=== PATIENT | female | born 1990 | race American Indian/Alaskan Native ===

== ENCOUNTER 2019-08-20 01:32 | Emergency (ER) | payer SELFPAY ==
--- NOTE | 2019-08-20 02:48 | XRay Report ---
CHEST 1 VIEW INDICATION / CLINICAL INFORMATION: Chest Pain. COMPARISON: None available. FINDINGS: SUPPORT DEVICES: None. HEART / MEDIASTINUM: No significant abnormality. LUNGS / PLEURA: No significant pulmonary or pleural abnormality. No pneumothorax. ADDITIONAL FINDINGS: No significant additional findings. IMPRESSION: No acute pulmonary or pleural abnormality Signer Name: Raymond Ortega MD FACR Signed: 08/20/2019 2:43 AM Workstation Name: [email or web address]
--- NOTE | 2019-08-20 04:34 | Emergency Department Report ---
ED General Adult HPI - General Chief complaint: Chest Pain Stated complaint: CHEST PRESSURE/NECK PAIN Time Seen by Provider: 08/20/19 04:18 Source: patient Mode of arrival: Ambulatory Limitations: No Limitations - History of Present Illness Initial comments: 28-year-old obese -[place] female presents emerged department complaining of random episodes of chest pressure off and on for the last 2 nights. States she is been having these episodes overall for the last 8 to 9 months was seen in the emergency department in [facility] and by her primary care with inconclusive evaluation. States that current chest pain is not associated with any other secondary symptoms chest discomfort is more the chest pressure. Reported hemoptysis no hematemesis no hematochezia. No odynophagia or dysphagia. -: days(s) (2) Radiation: non-radiation Quality: dull Consistency: constant Improves with: none Worsens with: none Associated Symptoms: denies: denies other symptoms, confusion, diaphoresis, headaches, loss of appetite, malaise - Related Data Allergies Allergy/AdvReac Type Severity Reaction Status Date / Time ibuprofen Allergy Headache Verified 08/20/19 01:58 naproxen Allergy Headache Verified 08/20/19 01:58 ED Review of Systems ROS: Stated complaint: CHEST PRESSURE/NECK PAIN Other details as noted in HPI Comment: All other systems reviewed and negative ED Past Medical Hx - Past Medical History Previous Medical History?: No - Surgical History Past Surgical History?: Yes Additional Surgical History: C-Sec X 1 - Social History Smoking Status: Never Smoker Substance Use Type: None ED Physical Exam - General Limitations: No Limitations General appearance: alert, in no apparent distress - Head Head exam: Present: atraumatic, normocephalic - Eye Eye exam: Present: normal appearance, PERRL, EOMI Pupils: Present: normal accommodation - ENT ENT exam: Present: normal exam, mucous membranes moist, TM's normal bilaterally - Neck Neck exam: Present: normal inspection - Respiratory Respiratory exam: Present: normal lung sounds bilaterally. Absent: respiratory distress, wheezes, rales, chest wall tenderness, accessory muscle use - Cardiovascular Cardiovascular Exam: Present: regular rate, normal rhythm. Absent: systolic murmur, diastolic murmur, rubs, gallop - GI/Abdominal GI/Abdominal exam: Present: soft, normal bowel sounds. Absent: distended, tenderness, hyperactive bowel sounds, hypoactive bowel sounds - Extremities Exam Extremities exam: Present: normal inspection, normal capillary refill - Back Exam Back exam: Present: normal inspection. Absent: CVA tenderness (R), CVA tenderness (L) - Neurological Exam Neurological exam: Present: alert, oriented X3, CN II-XII intact, normal gait - Psychiatric Psychiatric exam: Present: normal affect, normal mood - Skin Skin exam: Present: warm, dry, intact, normal color. Absent: rash ED Course Vital Signs 08/20/19 01:38 Temperature 98.4 F Pulse Rate 65 Respiratory 18 Rate Blood Pressure 122/79 O2 Sat by Pulse 99 Oximetry ED Medical Decision Making - Lab Data Result diagrams: 08/20/19 05:12 - Radiology Data Radiology results: report reviewed Print Report Referring Physician:DENILSON DE LA TORREPatient Name:KIRILL BUSTILLOSRPatient ID:[id number] of :[id number]:FemaleAccession:[id number] Date:[id number] Status:Finalized Findings [address] [address] XRay Report Signed Patient: KIRILL MCDONALD MR#: [id number] : 1990 Acct:[id number] Age/Sex: 28 / F ADM Date: 08/20/19 Loc: ED Attending Dr: Ordering Physician: DENILSON DE LA TORRE MD Date of Service: 08/20/19 Procedure(s): XR chest 1V ap Accession Number(s): [id number] cc: DENILSON DE LA TORRE MD Fluoro Time In Minutes: CHEST 1 VIEW INDICATION / CLINICAL INFORMATION: Chest Pain. COMPARISON: None available. FINDINGS: SUPPORT DEVICES: None. HEART / MEDIASTINUM: No significant abnormality. LUNGS / PLEURA: No significant pulmonary or pleural abnormality. No pn eumothorax. ADDITIONAL FINDINGS: No significant additional findings. IMPRESSION: No acute pulmonary or pleural abnormality Signer Name: Raymond Ortega MD FACR Signed: 08/20/2019 2:43 AM Workstation Name: [id number] Transcribed By: MS Dictated By: Raymond Ortega MD Electronically Authenticated By: Raymond Ortega MD Signed Date/Time: 08/20/19 0243 - Medical Decision Making This patient presents with chest pain that is very unlikely angina or acute coronary syndrome. The emergency department evaluation has not identified any cause for suspicion that this chest pain has a cardiac etiology. Based on their history, EKG (which showed no evidence of ischemia or infarction) and imaging, in addition to the patient's physical exam, I see no evidence at this time for a malignant etiology for the patient's chest pain. There is no acute evidence for pulmonary embolus, acute myocardial infarction, pneumothorax, Boerhaeve syndrome, cardiac tamponade, thoracic artery dissection, or any other emergent cardiac, pulmonary or aortic pathology. Given the low pre-test probability for cardiac etiology of chest pain and the absence of any sign of ischemia or infarction, discharge for outpatient follow-up and further evaluation is reasonable. I have explained to the patient that even though a cardiac problem is very unlikely, follow-up and further testing is required to reduce further the already small uncertainty that exists. Other life-threatening diagnoses have been considered. The patient understands the need to return immediately if their symptoms worsen or they develop any new symptoms, and not to engage in any significant exertional activity until follow-up is obtained. Critical care attestation.: If time is entered above; I have spent that time in minutes in the direct care of this critically ill patient, excluding procedure time. ED Disposition Clinical Impression: Chest pain Disposition: DC-01 TO HOME OR SELFCARE Is pt being admited?: No Does the pt Need Aspirin: No Condition: Stable Instructions: Chest Pain (ED) Additional Instructions: Recommend follow-up with cardiology for further evaluation and likely exercise stress test Holter monitor Referrals: JEROMY DOTSON MD [Staff Physician] - 3-5 Days
[2019-08-20 05:25] LABS: Basophils % (Auto) 0.8 % (0.0-1.8); Eosinophils # (Auto) 0.1 K/mm3 (0.0-0.4); Hematocrit 32.6 % (30.3-42.9); Hemoglobin 10.5 gm/dl (10.1-14.3); Lymphocytes # (Auto) 3.2 K/mm3 (1.2-5.4); Lymphocytes % (Auto) 51.8 % (13.4-35.0); Mean Corpuscular HGB Conc 32 % (30-34); Mean Corpuscular Volume 75 fl (79-97); Monocytes # (Auto) 0.4 K/mm3 (0.0-0.8); Monocytes % (Auto) 7.2 % (0.0-7.3); Platelet Count 276 K/mm3 (140-440); Red Blood Count 4.34 M/mm3 (3.65-5.03); Red Cell Distribution Width 15.6 % (13.2-15.2)
[2019-08-20 07:37] VITALS: BP 112/79
== END 2019-08-20 07:36 | disposition home or self-care (01) ==
LOC: ED 01:32
DX: R07.89 Other chest pain (principal); M54.2 Cervicalgia; Z98.890 Other specified postprocedural states; Z88.6 Allergy status to analgesic agent
CPT/HCPCS: 36415; 71045; 85025; 93005; 93010